=== PATIENT | female | born 1990 | race Two or more races ===

== ENCOUNTER 2023-07-18 15:26 | Outpatient (CLI) | payer OTHER | END 2023-07-18 15:29 | disposition home or self-care (01) | LOC: PRENATAL 15:26 | PROVIDERS: ATTEND Obstetrics & Gynecology Maternal & Fetal Medicine | DX: O35.3XX0 Maternal care for (suspected) damage to fetus from viral disease in mother, not applicable or unspecified (principal); O44.00 Complete placenta previa NOS or without hemorrhage, unspecified trimester; Z3A.20 20 weeks gestation of pregnancy ==

== ENCOUNTER 2023-11-21 14:54 | Inpatient (IN) | payer OTHER ==
[~2023-11-21] VITALS: Ht 160 cm; Wt 3.2 kg
[2023-11-21] MEDS ORDERED: PRENATAL TABLE1 EAC1 PO (16:23)
[2023-11-21] MEDS ORDERED: BAYER CHILDREN'81 MG PO (16:24)
[2023-11-21 16:37] LABS: URINE APPEARANCE Cloudy; URINE BILIRRUBIN Negative (NEGATIVE); URINE BLOOD Negative; URINE COLOR Yellow; URINE GLUCOSE Negative (NEGATIVE); URINE LEUKOCYTE Negative; URINE NITRATE Negative; URINE PROTEIN Trace (NEGATIVE)
[2023-11-21 16:37] LABS: HEMATOCRIT 31.9 % (36.0-45.00); HEMOGLOBIN 11.1 g/dL (12.0-15.00); MEAN CELL VOLUME 82.3 fL (80.00-100.00); MEAN CORPUSCULAR HEMOGLOBIN 28.7 pg (27.00-32.0); MEAN CORPUSCULAR HGB CONC 34.9 g/dl (32.0-36.0); PLATELET COUNT 246 K/uL (150-450); RED BLOOD COUNT 3.87 M/uL (4.00-6.00); RED CELL DISTRIBUTION WIDTH 13.7 % (11.5-14.5)
[2023-11-21 16:38] LABS: URINE EPITHELIAL CELLS 21.7 uL (0.0-38.8); URINE RBC 49.1 uL (0.0-20.8); URINE WBC 111.9 uL (0.0-23.2)
[2023-11-21] MEDS ORDERED: ACETAMINOPHEN 500 MG GEL..CAP PO PRN (16:45)
[2023-11-21 17:02] LABS: INR < 0.93; PARTIAL THROMBOPLASTIN TIME 25.4 SECONDS (22.0-34.0); PROTHROMBIN TIME 9.5 SECONDS (9.0-11.5)
[2023-11-21 17:14] LABS: ALBUMIN 2.5 gm/dL (3.4-5.0); BILIRUBIN TOTAL 0.22 mg/dL (0.3-1.2); CALCIUM 8.9 mg/dL (8.5-10.1); CREATININE SERUM 0.68 mg/dL (0.55-1.02); GFR 99.65; POTASSIUM 4.18 mEq/L (3.5-5.1); TOTAL PROTEIN 6.5 gm/dL (6.4-8.2)
[2023-11-21] MEDS ORDERED: MISOPROSTOL 25 MCG/4 ML GEL.W.APPL ONE (18:51)
[2023-11-21] MEDS ORDERED: MISOPROSTOL 25 MCG/4 ML GEL.W.APPL VAG ONE (19:00)
[2023-11-21] MEDS ORDERED: hydrOXYzine PAMOATE 50 MG CAPSULE PO ONE (22:15)
[2023-11-22] MEDS ORDERED: CEFAZOLIN SODIUM 1,000 MG VIAL IV SCH (07:30)
[2023-11-22] MEDS ORDERED: OXYTOCIN 10 UNITS/ML VIAL ONE ×2 (12:12→18:24)
[2023-11-22] MEDS ORDERED: ERYTHROMYCIN BASE 1 GM TUBE OP ONE (12:12)
[2023-11-22] MEDS ORDERED: METHYLERGONOVINE MALEATE 0.2 MG/ML AMPUL ONE (13:27)
[2023-11-22] MEDS ORDERED: OXYTOCIN 1,000 ML IV SCH (14:30)
[2023-11-22] MEDS ORDERED: MEPERIDINE HCL/PF 50 MG/ML VIAL IM PRN (14:30)
[2023-11-22] MEDS ORDERED: PROMETHAZINE HCL 50 MG/ML AMPUL IM PRN (14:45)
[2023-11-22] MEDS ORDERED: PROMETHAZINE HCL 50 MG/ML AMPUL IM ONE (17:03)
[2023-11-22] MEDS ORDERED: SIMETHICONE 125 MG CAPSULE PO SCH (18:00)
[2023-11-22] MEDS ORDERED: SIMETHICONE 125 MG CAPSULE PO ONE (18:24)
[2023-11-22 19:23] LABS: HEMATOCRIT 33.9 % (36.0-45.00); HEMOGLOBIN 11.7 g/dL (12.0-15.00); MEAN CELL VOLUME 83.8 fL (80.00-100.00); MEAN CORPUSCULAR HGB CONC 34.6 g/dl (32.0-36.0); PLATELET COUNT 238 K/uL (150-450); RED BLOOD COUNT 4.04 M/uL (4.00-6.00); RED CELL DISTRIBUTION WIDTH 13.7 % (11.5-14.5)
[2023-11-23] MEDS ORDERED: NAPROXEN 500 MG TABLET PO SCH (09:19)
[2023-11-23] MEDS ORDERED: ACETAMINOPHEN WITH CODEINE 1 UDTAB TABLET PO PRN (09:30)
[2023-11-24] MEDS ORDERED: CETIRIZINE HCL 5MG/5ML BLIST.PACK PO SCH (12:09)
[2023-11-25] MEDS ORDERED: NAPR500T14 PO (08:24)
[2023-11-25] MEDS ORDERED: Tylenol #3 PO (08:24)
[2023-11-25] MEDS ORDERED: CETIRIZINE HCL 5MG/5ML BLIST.PACK PO SCH (12:00)
== END 2023-11-25 12:31 | disposition home or self-care (01) | DRG 788 ==
LOC: LDR 14:54 → OB/GYN 11-22 14:34
PROVIDERS: ADMIT Obstetrics & Gynecology; ATTEND Obstetrics & Gynecology
PROC: 3E0P7VZ Introduction of Hormone into Female Reproductive, Via Natural or Artificial Opening (ICD-10-PCS; 2023-11-21)
PROC: 4A1HXCZ Monitoring of Products of Conception, Cardiac Rate, External Approach (ICD-10-PCS; 2023-11-21)
PROC: 3E033VJ Introduction of Other Hormone into Peripheral Vein, Percutaneous Approach (ICD-10-PCS; 2023-11-22)
PROC: 10D00Z1 Extraction of Products of Conception, Low, Open Approach (ICD-10-PCS; principal; 2023-11-22 12:15)
DX: O13.4 Gestational [pregnancy-induced] hypertension without significant proteinuria, complicating childbirth (principal); Z3A.39 39 weeks gestation of pregnancy; Z37.0 Single live birth; Z20.822 Contact with and (suspected) exposure to COVID-19

== ENCOUNTER 2023-11-28 13:36 | Emergency (ER) | payer OTHER ==
[~2023-11-28] VITALS: Ht 160 cm; Wt 104.3 kg
[~2023-11-28 13:36] MED LIST: BAYER CHILDREN'81 MG PO; NAPR500T14 PO; PRENATAL TABLE1 EAC1 PO; Tylenol #3 PO
[2023-11-28 17:06] LABS: HEMATOCRIT 31.5 % (36.0-45.00); HEMOGLOBIN 10.8 g/dL (12.0-15.00); MEAN CELL VOLUME 83.1 fL (80.00-100.00); MEAN CORPUSCULAR HEMOGLOBIN 28.5 pg (27.00-32.0); MEAN CORPUSCULAR HGB CONC 34.3 g/dl (32.0-36.0); PLATELET COUNT 355 K/uL (150-450); RED CELL DISTRIBUTION WIDTH 14.1 % (11.5-14.5)
[2023-11-28] MEDS ORDERED: PEPCID AC20 MG PO (18:08)
== END 2023-11-28 18:24 ==
LOC: ER 13:37
PROVIDERS: Nurse Practitioner Family
DX: L25.9 Unspecified contact dermatitis, unspecified cause (principal); R21 Rash and other nonspecific skin eruption